=== PATIENT | male | born 1950 | race Caucasian/White ===

== ENCOUNTER 2018-12-26 23:54 | Emergency (ER) | payer OTHER ==
[~2018-12-26] VITALS: Ht 182.9 cm; Wt 68.0 kg
--- OUTSIDE RECORDS SUMMARY | 2018-12-26 23:57 | XMS REPORT ---
Author Author [facility] Address Unknown Phone Unavailable Care Team Providers Care Safety Fire Boss Name Role Phone ASHIA GALVIN Unavailable Unavailable BOCCARDO ISABELLA Unavailable Unavailable SWEET, A LAIRD Unavailable Unavailable Payers Payer Name Policy Type Policy Number Effective Date Expiration Date Problems This patient has no known problems. Allergies, Adverse Reactions, Alerts Allergy Name Allergy Type Status Severity Reaction(s) Onset Date Inactive Date Treating Clinician Comments codeine DA Active [place] 2017-03-01 00:00:00 pentazocine DA Active MO 2017-03-01 00:00:00 meperidine DA Active MO 2017-03-01 00:00:00 Medications This patient has no known medications. Results Test Description Test Time Test Comments Text Results Atomic Results Result Comments CT CERVICAL SPINE WO 2018-12-23 20:13:00 [facility] [address], [place] [address] Patient Name: TRE ESTES MR #: [id number] : 1950 Age/Sex: 68/M Req #: [id number] Adm Physician: Ordered by: ASHIA GALVIN DO Report #: [id number] Location: ER Room/Bed: Procedure: [id number] CT/CT CERVICAL SPINE WO Exam Date: 12/23/18 Exam Time: 1954 REPORT STATUS: Signed CT CERVICAL SPINE WO HISTORY: Fall COM PARISON: Cervical spine CT 03/01/2018 TECHNIQUE: CT of the cervical spine without contrast. Sagittal and coronal reformations were created. One or more of the following dose reduction techniques were used: Automated exposure control, adjustment of the mA and/or kV according to patient size, and/or utilization of iterative reconstruction technique. FINDINGS: There are ACDF changes at C4-C5. Cervical lordosis is straightened. There is no significant scoliosis. No definite acute fracture or compression deformity is seen. The craniocervical junction is intact. No gross spinal canal masses are seen. The paravertebral and paraspinal soft tissues are unremarkable. Degenerative changes: Moderate multilevel spondylotic changes are most prominent at C5-C6 and C6-C7. There is partial fusion across the C5-C6 and C6- C7 disc spaces. Minimal grade 1 anterolisthesis of C3 on C4 is due to facet arthrosis, right greater than left. The C2 and C3 facet joints are fused. Additional findings: Surgical clips are seen along the left carotid bifurcation. Prominent right carotid bulb calcified plaque is present as well. IMPRESSION: No acute osseous abnormalities. ACDF at C4-C5 with degenerative changes as described above. Signed by: Dr. Edouard Pierre M.D. on 12/23/2018 8:18 PM Dictated By: EDOUARD PIERRE MD 17 Transcribed By: SHERLY on 12/23/182017 COPY TO: ASHIA GALVIN DO CT BRAIN WO 2018-12-23 20:08:00 [place] [address] Patient Name: TRE ESTES MR #: [id number] : 1950 Age/Sex: 68/M Req #: [id number] Adm Physician: Ordered by: ASHIA GALVIN DO Report #: [id number] Location: Room/Bed: Procedure: [id number] CT/CT BRAIN WO Exam Date: 12/23/18 Exam Time: 1954 REPORT STATUS: Signed CT BRAIN WO HISTORY: Fall COMPARISON: Head CT 03/01/2018 Technique: Noncontrast axial scans were obtained from skull base to the vertex. Coronal and sagittal reconstructions obtained from the axial data. One or more of the following dose reduction techniques were used: Automated exposure control, adjustment of the mA and/or kV according to patient size, and/or utilization of iterative reconstruction technique. DISCUSSION: Scalp/Skull: Unremarkable. Brain sulci: Mildly prominent. Ventricles: Compensatory dilatation. Extra-axial spaces: No masses or fluid collections. Carotid siphon calcifications are present. Parenchyma: There are stable scattered areas of encephalomalacia throughout the right MCA- JOAN external borderzone watershed territory. Mild bilateral deep white matter hypodensity is likely chronic microvascular ischemic change. There is an associated old right striatocapsular lacunar infarct. Otherwise, no masses, hemorrhage, or large vascular territory acute infarct. Dural sinuses: No abnormal densities. Sellar/Suprasellar region: Intact. Skull base: Intact. Incidental findings: None. IMPRESSION: 1. No acute intracranial abnormalities. 2. Scattered old cortical infarcts throughout the right MCA- JOAN external border zone watershed territory. 3. Mild supratentorial chronic microvascular ischemic change with old right striatocapsular lacunar infarct. 4. Mild generalized cerebral volume loss. Signed by: Dr. Edouard Pierre M.D. on 12/23/2018 8:12 PM Dictated By: EDOUARD PIERRE MD 11 Transcribed By: SHERLY on 12/23/182011 COPY TO: ASHIA GALVIN DO RENAL RETROPERITONEAL COMP 2018-11-29 16:16:00 [facility] [address] [place] [address] Patient Name: TRE ESTES MR #: [id number] : 1950 Age/Sex: 68/M Req #: [id number] Adm Physician: ISABELLA MARTINEZ MD Ordered by: ISABELLA MARTINEZ MD Report #: [id number] Location: MED/SURG3 Room/Bed: [facility] Procedure: [id number] US/US RENAL RETROPERITONEAL COMP Exam Date: Exam Time: REPORT STATUS: Signed EXAM: Renal Ultrasound INDICATION: HEMATURIA COMPARISON: None TECHNIQUE: Transverse and longitudinal images of the kidneys and bladder were obtained. FINDINGS: Right Kidney: Length: 10.2 cm Appearance: Normal echogenicity. Collecting system: No hydronephrosis Stones: None Cyst/Mass: None Left Kidney: Length: 10.2 cm Appearance: Normal echogenicity. Collecting system: No hydronephrosis Stones: None Cyst/Mass: None Bladder: No mass or calculi. Bilateral ureteral jets seen. Void volume estimate of 54.8 cc. Incidental note is made of hepatic steatosis. IMPRESSION: No hydronephrosis or renal calculi. Hepatic steatosis. Signed by: Bautista Unger MD on 11/29/2018 4:17 PM Dictated By: BAUTISTA UNGER MD 16 Transcribed By: SHERLY on 11/29/181616 COPY TO: ISABELLA MARTINEZ MD CT CHEST WO 2018-11-26 13:17:00 [place] [address] Patient Name: TRE ESTES MR #: [id number] : 1950 Age/Sex: 68/M Req #: [id number] [facility] Physician: ISABELLA MARTINEZ MD Ordered by: VLADIMIR OLMOS MD Report #: [id number] Location: MED/SURG3 Room/Bed: [facility] Procedure: [id number] CT/CT CHEST WO Exam Date: 11/26/18 Exam Time: 1150 REPORT STATUS: Signed EXAM: CT Chest WITHOUT intravenous contrast 11/26/2018 9:25 AM INDICATION: Pneumonia COMPARISON: Chest radiograph of 11/25/2018 TECHNIQUE: Chest was scanned utilizing a multidetector helical scanner from the lung apex through the level of the adrenal glands without administration of IV contrast. Coronal and sagittal reformations were obtained. Routine protocol was performed. IV CONTRAST: None RADIATION DOSE: Total DLP: 686.2 mGy*cm. Dose modulation, iterative reconstruction, and/or weight based adjustment of the mA/kV was utilized to reduce the radiation dose to as low as reasonably achievable. COMPLICATIONS: None FINDINGS: LINES/ TUBES: None. LUNGS AND AIRWAYS: The central airways are patent. Minimal biapical pleural parenchymal thickening/scarring. Mild upper lobe predominant centrilobular and paraseptal emphysema. Scattered groundglass opacities at the dependent portion of the lingula and at the left lower lobe. Mild dependent subsegmental atelectasis of the left lower lobe. 3.1 cm medial left lower lobe subpleural bleb. Airways are normal. PLEURA: The pleural spaces are clear. HEART AND MEDIASTINUM: The thyroid gland is normal. No mediastinal, hilar or axillary lymphadenopathy. The heart is not enlarged. No pericardial effusion. Atherosclerotic calcifications involve the coronary arteries, aorta and great vessels. UPPER ABDOMEN: Limited noncontrast enhanced images of the upper abdomen demonstrate no focal abnormality in the partially visualized liver, spleen, and left adrenal. The pancreas and kidneys are not visualized. BONES: No acute osseous injury. No suspicious lytic blastic lesions. SOFT TISSUES: Unremarkable. IMPRESSION: Ground glass opacities involving the lingula and left lower lobe may represent sequela of atypical infection. Compared to the chest radiograph of 11/25/2018, these opacities appear somewhat improved allowing for differences in technique. RECOMMENDATIONS: Follow-up chest radiograph in 6-8 weeks to assess for clearance. Signed by: Bautista Unger MD on 11/26/2018 1:27 PM Dictated By: BAUTISTA UNGER MD 26 Transcribed By: SHERLY on 11/26/181326 COPY TO: VLADIMIR OLMOS MD CHEST 2 VIEWS 2018-11-25 22:38:00 [place] [address] Patient Name: TRE ESTES MR #: [id number] : 1950 Age/Sex: 68/M Req #: [id number] Adm Physician: Ordered by: ASHIA DUNBAR MD Report #: [id number] Location: ER Room/Bed: Procedure: [id number] DX/CHEST 2 VIEWS Exam Date: 11/25/18 Exam Time: 2219 REPORT STATUS: Signed EXAMINATION: CHEST 2 VIEWS INDICATION: FEVER [id number] COMPARISON: None FINDINGS: PA and lateral views TUBES and LINES: None. LUNGS: Lungs are well inflated. Left lower lung field hazy opacification. PLEURA: No pleural effusion or pneumothorax. HEART AND MEDIASTINUM: The cardiomediastinal silhouette is unremarkable. BONES AND SOFT TISSUES: No acute osseous lesion. Degenerative changes of thoracic spine. Soft tissues are unremarkable. UPPER ABDOMEN: No free air under the diaphragm. IMPRESSION: Left lower lung field hazy opacification, concerning for pneumonia. Signed by: Dr. Colton Galeana MD on 11/25/2018 10:39 PM Dictated By: COLTON GALEANA MD 38 Transcribed By: SHERLY on 11/25/182238 COPY TO: ASHIA DUNBAR MD GLUBED 2018-03-23 05:49:00 GLUBED (test code=GLUBED) 154 mg/dL 74-106 Performed by certified stereoplotter operator at [facility] [id number] 04:24:00* Test Item Value Reference Range Comments GLUBED (test code=GLUBED) 61 mg/dL 74-106 Performed by certified stereoplotter operator at [facility] BASIC METABOLIC [id number] 01:21:00* Test Item Value Reference Range Comments SODIUM (test code=NA) 142 mmol/L 136-145 POTASSIUM (test code=K) 4.1 mmol/L 3.5-5.1 CHLORIDE (test code=CL) 102.0 mmol/L 98-107 CARBON DIOXIDE (test code=CO2) 28.0 mmol/L 21-32 ANION GAP (test code=GAP) 16.1 10-20 GLUCOSE (test code=GLU) 66 mg/dL 74-106 BLOOD UREA NITROGEN (test code=BUN) 15 mg/dL 7-18 GLOMERULAR FILTRATION RATE (test code=GFR) > 60 mL/min >=60 Estimated GFR by using Modified MDRD formula.Chronic kidney disease is defined as either kidney damageor GFR <60 mL/min/1.73 m2 for >3 months. CREATININE (test code=CREAT) 0.60 mg/dL 0.7-1.3 BUN/CREATININE RATIO (test code=BUN/CREA) 24.9 10-20 CALCIUM (test code=CA) 8.1 mg/dL 8.5-10.1 HEPATIC FUNCTION [id number] 01:21:00* Test Item Value Reference Range Comments TOTAL PROTEIN (test code=PROT) 6.4 gram/dL 6.4-8.2 ALBUMIN (test code=ALB) 2.7 g/dL 3.4-5.0 GLOBULIN (test code=GLOB) 3.7 gram/dL 2.7-4.2 ALBUMIN/GLOBULIN RATIO (test code=A/G) 0.7 0.75-1.50 BILIRUBIN TOTAL (test code=BILT) 0.30 mg/dL 0.0-1.0 BILIRUBIN DIRECT (test code=BILD) 0.13 mg/dL 0.0-0.20 SGOT/AST (test code=AST) 19 IUnit/L 15-37 SGPT/ALT (test code=ALT) 16 IUnit/L 12-78 ALKALINE PHOSPHATASE TOTAL (test code=ALKP) 116 IUnit/L 45-117 Note change in reference range due to change in reagent. [id number] 01:21:00* Test Item Value Reference Range Comments ACETAMINOPHEN (test code=ACET) < 10 mcg/mL 10-30 A RANGE OF 10-30 mcg/mL IS A THERAPEUTIC RANGE. TOXIC CONCENTRATIONS: >150 mcg/mL AT 4 HOURS AFTER INGESTION >=50 mcg/mL AT 12 HOURS AFTER INGESTION [id number] 01:21:00* Test Item Value Reference Range Comments SALICYLATE (test code=SEAMUS) 3.7 mg/dL 2.8-20.0 [id number] 01:21:00* Test Item Value Reference Range Comments ALCOHOL (test code=ALC) 246 mg/dL 0.0-3.0 INTERPRETIVE DATA NOTE: POSITIVE SCREENING RESULTS SHOULD BE CONSIDERED PRESUMPTIVE.WHEN COLLECTED FOR MEDICAL PURPOSES ONLY. SPECIMEN WILL NOTBE COLLECTED BY CHAIN OF CUSTODY.IF A CONFIRMATION OF POSITIVE RESULTS IS DESIRED, ACONFIRMATION TEST MUST BE REQUESTED BY THE PHYSICIAN AT ANADDITIONAL CHARGE TO THE PATIENT. BASIC METABOLIC [id number] 01:11:00* Test Item Value Reference Range Comments SODIUM (test code=NA) 142 mmol/L 136-145 POTASSIUM (test code=K) 4.1 mmol/L 3.5-5.1 CHLORIDE (test code=CL) 102.0 mmol/L 98-107 CARBON DIOXIDE (test code=CO2) mmol/L 21-32 ANION GAP (test code=GAP) 10-20 GLUCOSE (test code=GLU) mg/dL 74-106 BLOOD UREA NITROGEN (test code=BUN) mg/dL 7-18 GLOMERULAR FILTRATION RATE (test code=GFR) mL/min >=60 CREATININE (test code=CREAT) mg/dL 0.7-1.3 BUN/CREATININE RATIO (test code=BUN/CREA) 10-20 CALCIUM (test code=CA) mg/dL 8.5-10.1 HEPATIC FUNCTION [id number] 01:11:00* Test Item Value Reference Range Comments TOTAL PROTEIN (test code=PROT) gram/dL 6.4-8.2 ALBUMIN (test code=ALB) g/dL 3.4-5.0 GLOBULIN (test code=GLOB) gram/dL 2.7-4.2 ALBUMIN/GLOBULIN RATIO (test code=A/G) 0.75-1.50 BILIRUBIN TOTAL (test code=BILT) mg/dL 0.0-1.0 BILIRUBIN DIRECT (test code=BILD) mg/dL 0.0-0.20 SGOT/AST (test code=AST) IUnit/L 15-37 SGPT/ALT (test code=ALT) IUnit/L 12-78 ALKALINE PHOSPHATASE TOTAL (test code=ALKP) IUnit/L 45-117 [id number] 01:11:00* Test Item Value Reference Range Comments ACETAMINOPHEN (test code=ACET) mcg/mL 10-30 [id number] 01:11:00* Test Item Value Reference Range Comments SALICYLATE (test code=SEAMUS) mg/dL 2.8-20.0 [id number] 01:11:00* Test Item Value Reference Range Comments ALCOHOL (test code=ALC) mg/dL 0-3 CBC W/AUTO [id number] 01:06:00* Test Item Value Reference Range Comments WHITE BLOOD CELL (test code=WBC) 12.7 K/mm3 4.5-12.5 RED BLOOD CELL (test code=RBC) 5.17 mill/mm3 4.0-5.8 HEMOGLOBIN (test code=HGB) 15.5 gram/dL 13.0-17.5 HEMATOCRIT (test code=HCT) 47.4 % 42.0-52.0 MEAN CELL VOLUME (test code=MCV) 91.7 fL 80-98 MEAN CELL HGB (test code=MCH) 30.0 picogram 27.0-33.0 MEAN CELL HGB CONCETRATION (test code=MCHC) 32.7 gram/dL 33.0-36.0 RED CELL DISTRIBUTION WIDTH (test code=RDW) 14.6 % 11.6-16.2 RED CELL DISTRIBUTION WIDTH SD (test code=RDW-SD) 49.0 fL 37.0-51.0 PLATELET COUNT (test code=PLT) 415 K/mm3 150-450 MEAN PLATELET VOLUME (test code=MPV) 9.6 fL 6.7-11.0 NEUTROPHIL % (test code=NT%) 73.0 % 39.0-69.0 IMMATURE GRANULOCYTE % (test code=IG%) 0.6 % 0.0-5.0 LYMPHOCYTE % (test code=LY%) 18.2 % 25.0-55.0 MONOCYTE % (test code=MO%) 6.9 % 0.0-10.0 EOSINOPHIL % (test code=EO%) 0.7 % 0.0-5.0 BASOPHIL % (test code=BA%) 0.6 % 0.0-1.0 NUCLEATED RBC % (test code=NRBC%) 0.0 % 0-0 NEUTROPHIL # (test code=NT#) 9.28 K/mm3 1.8-7.7 IMMATURE GRANULOCYTE # (test code=IG#) 0.07 x10 3/uL 0-0.03 LYMPHOCYTE # (test code=LY#) 2.31 K/mm3 1.0-5.0 MONOCYTE # (test code=MO#) 0.87 K/mm3 0-0.8 EOSINOPHIL # (test code=EO#) 0.09 K/mm3 0.0-0.5 BASOPHIL # (test code=BA#) 0.07 K/mm3 0.0-0.2 NUCLEATED RBC # (test code=NRBC#) 0.00 K/mm3 0.0-0.1 CT CERVICAL SPINE [id number] 02:04:00 [place] [address] Patient Name: TRE ESTES MR #: [id number] : 1950 Age/Sex: 67/M Req #: [id number] Adm Physician: Ordered by: SHERIF MCINTOSH MD Report #: [id number] Location: ER Room/Bed: Procedure: [id number] CT/CT CERVICAL SPINE WO Exam Date: Exam Time: REPORT STATUS: Signed History: Trau ma, fall. Comparison studies: None Technique: Axial images were obt ained through the cervical region.. Coronal and sagittal images reconstructed from the axial data. Dose modulation, iterative reconstruction, and/or weight based adjustment of the mA/kV was utilized to reduce the radiation dose to as low as reasonably achievable. Intravenous contrast: None Findings: Fractures: None. Soft tissue injuries: None. Atlantoaxial articulatio n: Intact. Alignment: Reversal of normal cervical lordosis centered at C4-C5. No scoliosis. 1.5 mm grade 1 anterolisthesis at C3-C4. Cervicomedullary ju nction: No abnormalities. The foramen magnum is patent. Soft tissues: Multiple surgical clips in left lateral cervical soft tissues. Atherosclerotic calcifi cation in bilateral carotid bulb. Vertebrae: Expected postoperative barksdale ges from prior anterior cervical spine fusion at level C4-C5 with osseous fus ion and intervertebral disc spacer device. The metallic hardware is intact. Velasco boptimal evaluation at this level due to metallic streak artifacts. Osseous fusion of posterior elements of C2 and C3. No fractures, infection or neoplasm . Degenerative changes: C2-C3: Moderate bilateral facet arthrosis withou t significant foraminal stenosis. C3-C4: Posterior disc osteophyte complex r esults in mild canal stenosis. Severe right foraminal stenosis due to facet an d uncovertebral arthrosis. C4-C5: Posterior disc osteophyte complex results in mild to moderate canal stenosis. Moderate left foraminal stenosis due to fa cet and uncovertebral arthrosis. C5-C6: Moderate degenerative disc disease. Posterior disc osteophyte complex results in severe canal stenosis. Mild right and severe left foraminal stenosis due to facet and uncovertebral arthrosis. C6-C7: Severe degenerative disc disease. Posterior disc osteophyte complex r esults in moderate canal stenosis. Mild right and moderate left foraminal sten osis due to facet and uncovertebral arthrosis.. IMPRESSION: 1. No a cute cervical spine fracture or dislocation. 2. Expected postoperative ashvin nges from prior anterior cervical spine fusion at level C4-C5. 3. Ligame nt, spinal cord and or vascular abnormalities cannot be excluded on the basis of this examination. 4. Cervical spondylosis as detailed above. Signed by: Dr. Ludmila Quintero M.D. on 03/01/2018 2:11 AM Dictated By: Ariel QUINTERO MD 0 Transcribed By: SHERLY on 03/01/18210 COPY TO: SHERIF MCINTOSH MD CT BRAIN [id number] 01:52:00 [place] [address] Patient Name: TRE ESTES MR #: [id number] : 1950 Age/Sex: 67/M Req #: [id number] Adm Physician: Ordered by: SHERIF MCINTOSH MD Report #: [id number] Location: ER Room/Bed: Procedure: [id number] CT/CT BRAIN WO Exam Date: Exam Time: REPORT STATUS: Signed EXAMINATION: Head CT w ithout contrast. HISTORY:Trauma, fall. COMPARISON:None. TECHNIQ UE: Multidetector axial images were obtained from the foramen magnum to the ve rtex without contrast. The images were reconstructed using brain and bone algo rithms. Thin section brain images were reformatted into coronal and sagittal planes. Dose modulation, iterative reconstruction, and/or weight based adjustm ent of the mA/kV was utilized to reduce the radiation dose to as low as reason ably achievable. Intravenous contrast: None IMAGE QUALITY: Accepta ble. FINDINGS: Skull/scalp: No lytic or blastic. lesions. No surgica l changes. Parenchyma: Cortical based hypodensity in right middle frontal gyrus, precentral gyrus, posterior aspect of right superior frontal gyrus, s upramarginal gyrus, superior and inferior parietal lobe and diffuse confluent hypodensity in right centrum semiovale represents age indeterminate possible c hronic vascular insult in right MCA territory, MCA/HEALTH DATA ANALYST watershed zone. Old lac unar infarct in right caudate head that extends to the anterior limb of right internal capsule and anterior aspect of right putamen. Age indeterminate lacun ar infarct in right subinsular region/inferior and posterior aspect of right p utamen. Nonspecific right more than left periventricular, subcortical and deep white matter hypodensity are likely related to small vessel ischemic changes. No acute hemorrhage or mass.. Arteries: No density suggestive of thromb osis. Atherosclerotic calcification in bilateral carotid siphon. Dural sinuses: No abnormal density suggestive of thrombosis. Ventricles: Moder ate compensated dilatation due to volume loss with mild exvacuodilatation of r ight lateral ventricle. No acute hydrocephalus. Extra-axial spaces: No abn ormal density. Brain volume: Generalized age-related cerebral volume los s. Craniocervical junction: No mass, Chiari malformation, or basilar inv agination. Sella: No mass. Paranasal/mastoid sinuses: Imaged portio ns unremarkable. IMPRESSION: 1. No acute posttraumatic intracranial abnormality, particularly no acute hemorrhage. 2. Age indeterminate poss ible chronic vascular insult in right MCA territory and MCA/HEALTH DATA ANALYST watershed zone . Possibility of superimposed acute on chronic vascular insult is not excluded . 3. Chronic lacunar infarct in right striato-capsular region. Age indeterm inate lacunar infarct in right subinsular region. 4. Mild supratentorial white matter microvascular ischemic changes. 5. Generalized age-related cer ebral volume loss. Signed by: Dr. Ludmila Quintero M.D. on 03/01/2018 2:04 A M Dictated By: LUDMILA QUINTERO MD [id number] Transcribed By: SHERLY on 03/01/18203 COPY TO: SHERIF MCINTOSH MD
== END 2018-12-27 03:10 | disposition home or self-care (01) ==
LOC: ER 23:54
DX: R00.2 Palpitations (principal); I48.91 Unspecified atrial fibrillation; F41.9 Anxiety disorder, unspecified; F32.9 Major depressive disorder, single episode, unspecified; F10.10 Alcohol abuse, uncomplicated; I69.354 Hemiplegia and hemiparesis following cerebral infarction affecting left non-dominant side; F17.210 Nicotine dependence, cigarettes, uncomplicated
CPT/HCPCS: 36415; 82948; 99283